=== PATIENT | female | born 1955 | race Caucasian/White ===

== ENCOUNTER → 2024-04-23 09:17 | Outpatient (REF) | payer MEDICARE, OTHER, SELFPAY | LOC: RAD 09:17 | PROVIDERS: ATTENDING PHYSICIAN Internal Medicine Rheumatology; FAMILY PHYSICIAN Physician Assistant | DX: M05.79 Rheumatoid arthritis with rheumatoid factor of multiple sites without organ or systems involvement (principal) | CPT/HCPCS: 76882 ==

== ENCOUNTER → 2025-03-11 10:33 | Outpatient (REF) | payer MEDICARE, OTHER, SELFPAY | LOC: RAD 10:33 | PROVIDERS: ATTENDING PHYSICIAN Internal Medicine Rheumatology; FAMILY PHYSICIAN Physician Assistant | DX: M05.79 Rheumatoid arthritis with rheumatoid factor of multiple sites without organ or systems involvement (principal) | CPT/HCPCS: 76882 ==